=== PATIENT | male | born 1940 | race Caucasian/White ===

== ENCOUNTER 2023-02-21 15:11 | Emergency (ER) | payer OTHER, MEDICARE, SELFPAY ==
--- NOTE | ~2023-02-21 | XR_ITS ---
EXAMINATION: XR CHEST CLINICAL INFORMATION: Food stuck in her throat COMPARISON: None available. TECHNIQUE: 2 views of the chest were obtained. FINDINGS: No significant abnormality is noted involving the heart, lungs, mediastinum, bony thorax or soft tissues. XR/XR chest 2V IMPRESSION: Unremarkable chest examination
--- NOTE | 2023-02-21 15:15 | ECG_ITS ---
Test Reason : CHEST PAIN Blood Pressure : / mmHG Vent. Rate : 064 BPM Atrial Rate : 064 BPM P-R Int : 242 ms QRS Dur : 096 ms QT Int : 392 ms P-R-T Axes : 020 -14 007 degrees QTc Int : 404 ms Sinus rhythm with 1st degree A-V block Otherwise normal ECG No previous ECGs available Referred By: Luly Ervin Electronically Signed By:BRIDGET INGRAM
--- NOTE | 2023-02-21 15:35 | ED_ITS ---
HPI - General Adult General Chief complaint: Chest Pain Stated complaint: coughing,chest tightness Time Seen by Provider: 02/21/23 20:45 Source: patient Limitations: no limitations History of Present Illness HPI narrative: 82 years old history of hypertension, hyperlipidemia, hiatal hernia, presents to the emergency room for vomiting , chest pain and epigastric pain after he reports that the piece of meat got stuck in his esophagus. Patient reports that for approximately an hour after the episode he was unable to swallow liquids or solid. He reports that he vomited a few times and that after he vomited he started having abdominal pain that is since then resolved. Pain was not exertional, not worsened by respiration. Patient reports that while he was waiting to be assessed pain and all symptoms have completely resolved and he has been able to tolerate liquids. Related Data Allergies Allergy/AdvReac Type Severity Reaction Status Date / Time No Known Allergies Allergy Verified 02/21/23 20:18 Review of Systems Review of Systems: Yes all other systems are reviewed and are negative Physical Exam ED Vital Signs: Vital Signs - 24 hr 02/21/23 15:36 02/21/23 20:45 02/21/23 21:02 Temperature 96.8 F 97.7 F Pulse Rate 60 60 Respiratory Rate 16 19 Blood Pressure 140/68 H 142/64 H Pulse Oximetry 100 98 Oxygen Delivery Method Room Air Room Air BMI result Body Mass Index 22.8 General: Alert, Not in Distress Skin: No rash, warm HEENT: Atraumatic, No Exudate or Pharyngeal Erythema Resp: Normal Breath sounds bilaterally Cardio: Regular rate and Rhythm, Normal S1, S2 ABD: Abd soft, non tender, no guarding or rebound. Normal Bowel sounds. : No cva tenderness Neuro: Alert, oriented x4, PERRL Strenght 5/5 on all extremities Sensation is preserved in both lower and upper extremities Index to nose: normal Cranial Nerves II-XII grossly intact No dysarthria, or aphasia No neglet. Visual reeves are normal bilaterally Psych: Cooperative, NO SI Course Course Course Narrative: RME:?82 yo male here w/ chest discomfort after choking while eating a quesadilla 1 hour ago. Was able to vomiting the food up however is now having substurnal chest discomfort. he is unsure if this is from him retching to bring the food up. equal breath sounds bilaterally. .controlling secretions. speaking in complete sentences. not hypoxic plan for ekg, chest xr Full HPI, ROS and PE to be performed by the primary ED provider. Medical Decision Making Medical Decision Making [facility] Narrative: 82 years old presenting to the emergency room for an episode consistent with food impaction, symptoms of resolved and patient has been able to tolerate p.o.. EKG and chest x-ray that I personally reviewed showed sinus rhythm with first- degree AV block while chest x-ray was unremarkable. At this time I think that food impaction is the most likely cause of patient's symptoms have very low suspicion for ACS with an EKG that does not show any signs of ischemia. Other possible differential diagnosis include GERD, gastritis however the complete resolution of the symptoms of the patient vomited mixed meeting that those are less likely. At this time patient has remained in the emergency room for almost 6 hours, he had resolution of his symptoms, chest x-ray and EKG were unremarkable and I do not think he requires further lab work. Admission/Observation Consideration of admission/observation: Escalation of care including admission/observation considered Independent Historian Clinical information obtained from an independent historian. History obtained from or confirmed by: Spouse (confirmend pt hx) Discharge Plan Discharge Clinical Impression: Esophageal obstruction due to food impaction Patient Disposition: Home, Self-Care Additional Instructions: You were seen emergency room for chest pain. Your symptoms are consistent with food impaction which however have since then resolved. At this time I think he can be safely discharged home. Please follow-up within the next few days with your primary care physician. If the chest pain returns for the 2nd come back to the emergency room for further evaluation.
[2023-02-21 15:36] VITALS: BP 140/68; PULSE 60; RESP 16; TEMP 36; O2SAT 100; BMI 22.8
[2023-02-21 20:45] VITALS: PULSE 60; RESP 19; TEMP 36.5; O2SAT 98
[2023-02-21 21:02] VITALS: BP 142/64
--- OUTSIDE RECORDS SUMMARY | 2023-02-21 21:18 | XMS_ITS | Continuity of Care Document ---
Author Name Unknown Organization [facility] Address [address] [place] [address]- Care Team Providers Care Torpedo Specialist Name Role Phone Baldomero Kunz MD Primary Care Physician Encounter [facility] Date(s): 03/02/19 - 03/09/19 [facility] [address] [place] [address]- [facility] Encounter Diagnosis Acute URI(Discharge Diagnosis) - 03/02/19 Attending Physician: Baldomero Kunz MD Allergies, Adverse Reactions, Alerts Substance Reaction Severity Status NKA Active Immunizations Given and Recorded Vaccine Date Status Refusal Reason influenza virus vaccine, inactivated 10/22/18 Uriel rded influenza virus vaccine, inactivated 1 11/08/17 Gi david influenza virus vaccine, inactivated 2 11/23/16 Gi david influenza virus vaccine, inactivated 3 11/20/15 Gi david influenza virus vaccine, inactivated 4 12/11/14 Gi david influenza virus vaccine, inactivated 5 11/14/13 Gi david influenza virus vaccine, inactivated 6 11/30/11 Gi david influenza virus vaccine, inactivated 11/19/10 Give n influenza virus vaccine, inactivated 12/25/09 Give n pneumococcal 23-valent vaccine 7 11/23/16 Given pneumococcal 23-valent vaccine 8 02/10/15 Given pneumococcal 23-valent vaccine 9 02/10/15 Given pneumococcal 13-valent vaccine 10 11/20/15 Given tetanus/diphtheria/pertussis, acel(Tdap) 06/15/11 Given Influenza Virus Vaccine (oldterm) 11 11/28/07 Give n Influenza Virus Vaccine (oldterm) 12 12/08/06 Give n Influenza Virus Vaccine (oldterm) 13 12/07/05 Give n Pneumococcal Poly (PPV23) (oldterm) 12/09/03 Given tetanus-diphtheria toxoids (Td) 01/11/02 Given 1[facility] Note[facility]Admin Note: [facility] high dose given form received 3Admin Note: [facility] high dose flu shot 4Admin Note: [facility] 5Result Comment: [11/14/2013] given w/out incident 6Admin Note: vis sheet given. 7Admin Note: [facility] form received 8Result Comment: [02/10/2015] given w/out incident 9Result Comment: [02/10/2015] given w/out incident 10Admin Note: [facility] 11Admin Note: [email or web address] 12Admin Note: [employer] PATIENT MEETS [employer]ITERIA 13Admin Note: [employer] Medications atenolol 50 mg oral tablet 50 mg, 1, tablet, By Mouth, Daily, # 90 tablet, Refills 3, Tot. Refills 3, Maintenance, 03/02/19 13:21:00 EST, Route to Pharmacy Electronically, [facility], 172, cm, 03/02/19 13:11:00 EST, Height Start Date: 03/02/19 Stop Date: 02/25/20 Status: Ordered lisinopril 2.5 mg oral tablet 2.5 mg, 1, tablet, By Mouth, Daily, # 90 tablet, Refills 3, Tot. Refills 3, Maintenance, 04/21/18 16:36:45 EDT, Route to Pharmacy Electronically, [id number], [facility] Start Date: 04/21/18 Stop Date: 04/16/19 Status: Ordered Probiotic Formula By Mouth, Daily, 0 Refills, Maintenance, 03/02/19 13:21:00 EST Start Date: 03/02/19 Status: Ordered simvastatin 20 mg oral tablet 20 mg, 1, tablet, By Mouth, Every other day, # 45 tablet, Refills 3, Tot. Refills 3, Maintenance, 04/21/18 16:37:00 EDT, Route to Pharmacy Electronically, [id number], [facility] Start Date: 04/21/18 Stop Date: 04/16/19 Status: Ordered Vitamin D Capsule By Mouth, Maintenance, 10/23/09 14:11:54 Start Date: 10/23/09 Status: Ordered Problem List Condition Effective Dates Status Health Status Inform ant Anxiety disorder(Confirmed) Active Bacterial overgrowth syndrome(Confirmed) Active Basal cell carcinoma of skin(Confirmed) 09/2001 Active Colonic adenoma(Confirmed) 2003 Active DDD (degenerative disc disea se), lumbar L5-S1(Confirmed) 02/20/09 Active Diverticulosis(Confirmed) 04/2006 Active Erectile dysfunction(Confirmed) Active FH: colon cancer (sister)(Confirmed) Active Family history of CLL (chron ic lymphoid leukemia) brother(Confirmed) Active Family history: Hypertension (parents)(Confirmed) Active FH: Diabetes mellitus (dad)(Confirmed) Active GERD (gastroesophageal reflu x disease)(Confirmed) Active Gastroparesis(Confirmed) Active Hepatic cirrhosis(Confirmed) Active Hypercholesterolemia(Confirmed) Active Hypertension(Confirmed) Active Internal hemorrhoids(Confirmed) 04/2006 Active Right kidney stone(Confirmed) 1 06/19/15 Active Repair of inguinal hernia, left(Confirmed) 01/06/[address] Diagnosis Diagnosis Type Effective Dates Health Status Clini ana Service Informant Acute URI Discharge Diagnosis 03/02/19 Vital Signs Most recent to oldest [Reference Range]: 1 2 Height 172 cm (03/02/19 1:23 PM) 172 cm (03/02/19 1:11 PM) Weight 76.4 kg (03/02/19 1:11 PM) Oxygen Saturation [94-100 %] 98 % (03/02/19 1:11 PM) Pulse Rate [55-90 bpm] 53 bpm *L* (03/02/19 1:11 PM) Body Mass Index [18.5-24.99] 25.82 *H* (03/02/19 1:11 PM) Blood Pressure [90-138/55-84 mm Hg] 136/ 68mm Hg (03/02/19 1:23 PM) 132/66mm Hg (03/02/19 1:11 PM) Mode of Delivery (Oxygen) Room air (03/02/19 1:11 PM) Blood pressure sites Arm, left (03/02/19 1:11 PM) Weight Obtained Via Standing scale (03/02/19 1:11 PM) Social History Social History Type Response Smoking Status Never (less than 100 in lifetime) entered on: 03/02/19 Sex
--- OUTSIDE RECORDS SUMMARY | 2023-02-21 21:18 | XMS_ITS | Continuity of Care Document ---
Author Name Unknown Organization [facility] Address [address] [place] [address]- Care Team Providers Care K9 Handler Name Role Phone Baldomero Kunz MD Primary Care Physician Encounter [facility] Date(s): 03/09/21 - 03/16/21 [facility] [address] [place], [place] [address] Encounter Diagnosis Nonhealing nonsurgical wound(Discharge Diagnosis) - 03/09/21 Attending Physician: Baldomero Kunz MD Allergies, Adverse Reactions, Alerts No Known Allergies Immunizations Given and Recorded Vaccine Date Status Refusal Reason tetanus/diphtheria/pertussis, acel(Tdap) 1 03/09/21 Given tetanus/diphtheria/pertussis, acel(Tdap) 06/15/11 Given SARS-CoV-2 (COVID-19) mRNA BNT-162b2 vac 12/01/20 Recorded SARS-CoV-2 (COVID-19) mRNA BNT-162b2 vac 04/28/20 Recorded SARS-CoV-2 (COVID-19) mRNA BNT-162b2 vac 04/08/20 Recorded influenza virus vaccine, inactivated 11/18/20 Uriel rded influenza virus vaccine, inactivated 2 10/08/19 Re corded influenza virus vaccine, inactivated 10/22/18 Uriel rded influenza virus vaccine, inactivated 3 11/08/17 Gi david influenza virus vaccine, inactivated 4 11/23/16 Gi david influenza virus vaccine, inactivated 5 11/20/15 Gi david influenza virus vaccine, inactivated 6 12/11/14 Gi david influenza virus vaccine, inactivated 7 11/14/13 Gi david influenza virus vaccine, inactivated 8 11/30/11 Gi david influenza virus vaccine, inactivated 11/19/10 Give n influenza virus vaccine, inactivated 12/25/09 Give n zoster vaccine, inactivated 06/20/18 Recorded zoster vaccine, inactivated 03/28/18 Recorded pneumococcal 23-valent vaccine 9 11/23/16 Given pneumococcal 23-valent vaccine 10 02/10/15 Given pneumococcal 23-valent vaccine 11 02/10/15 Given pneumococcal 13-valent vaccine 12 11/20/15 Given Influenza Virus Vaccine (oldterm) 13 11/28/07 Give n Influenza Virus Vaccine (oldterm) 14 12/08/06 Give n Influenza Virus Vaccine (oldterm) 15 12/07/05 Give n Pneumococcal Poly (PPV23) (oldterm) 12/09/03 Given tetanus-diphtheria toxoids (Td) 01/11/02 Given 1Result Comment: [id number] given w/out incident 2Result Comment: [facility] 3Admin Note: [facility] 4Admin Note: [facility] high dose given form received 5Admin Note: [facility] high dose flu shot 6Admin Note: [facility] 7Result Comment: [11/14/2013] given w/out incident 8Admin Note: vis sheet given. 9Admin Note: [facility] form received 10Result Comment: [02/10/2015] given w/out incident 11Result Comment: [02/10/2015] given w/out incident 12Admin Note: [facility] 13Admin Note: [email or web address] 14Admin Note: [employer] PATIENT MEETS CRITERIA 15Admin Note: [employer] Medications atenolol 50 mg oral tablet 50 mg, 1, tablet, By Mouth, Daily, for 90 days, # 90 tablet, Refills 3, Tot. Refills 3, Physician Stop 03/04/22 13:58:00 EST, 03/09/21 13:58:00 EST, Route to Pharmacy Electronically, [facility], 172, cm, 03/09/21 13:48:00 EST, Height Start Date: 03/09/21 Stop Date: 03/04/22 Status: Ordered lisinopril 2.5 mg oral tablet 2.5 mg, 1, tablet, By Mouth, Daily, for 90 days, # 90 tablet, Refills 3, Tot. Refills 3, Physician Stop 03/04/22 13:58:00 EST, 03/09/21 13:58:00 EST, Route to Pharmacy Electronically, [facility], 172, cm, 03/09/21 13:48:00 EST, Height Start Date: 03/09/21 Stop Date: 03/04/22 Status: Ordered Probiotic Formula By Mouth, Daily, 0 Refills, Maintenance, 03/02/19 13:21:00 EST Start Date: 03/02/19 Status: Ordered simvastatin 20 mg oral tablet See Instructions, TAKE ONE TABLET BY MOUTH EVERY OTHER DAY, # 45 tablet, Refills 3, Tot. Refills 3,03/09/21 13:58:00 EST, Instructions Replace Required Details, Route to Pharmacy Electronically, [facility], 172, cm, 03/09/21 13:48:00 EST... Start Date: 03/09/21 Status: Ordered Vitamin D Capsule By Mouth, [...] Diagnosis Diagnosis Type Effective Dates Health Status Clinical Service Informant Nonhealing nonsurgical wound Discharge Diagnosis 03/09/21 Vital Signs Most recent to oldest [Reference Range]: 1 Height 172 cm (03/09/21 1:48 PM) Weight 75.9 kg (03/09/21 1:48 PM) Oxygen Saturation [94-100 %] 98 % (03/09/21 1:48 PM) Pulse Rate [55-90 bpm] 61 bpm (03/09/21 1:48 PM) Body Mass Index [18.5-24.99] 25.66 *H* (03/09/21 1:48 PM) Blood Pressure [90-138/55-84 mm Hg] 138/ 78mm Hg (03/09/21 1:48 PM) Temperature [96.8-100.4 DegF] 98.2 DegF (03/09/21 1:48 PM) Mode of Delivery (Oxygen) Room air (03/09/21 1:48 PM) Blood pressure sites Arm, left (03/09/21 1:48 PM) Temperature Route Temporal (03/09/21 1:48 PM) Social History Social History Type Response Smoking Status Never (less than 100 in lifetime) entered on: 03/02/19 Sex
--- OUTSIDE RECORDS SUMMARY | 2023-02-21 21:18 | XMS_ITS | Continuity of Care Document ---
Author Name Unknown Organization [facility] Address [address] [place] [address]- Care Team Providers Care Retail Reset Merchandiser Name Role Phone Baldomero Kunz MD Primary Care Physician Encounter [facility] Date(s): 03/07/20 - 04/06/20 [facility] [address] [place], [place] [address] Allergies, Adverse Reactions, Alerts Substance Reaction Severity Status NKA Active Immunizations Given and Recorded Vaccine Date Status Refusal Reason influenza virus vaccine, inactivated 1 10/08/19 Re corded influenza virus vaccine, inactivated 10/22/18 Uriel rded influenza virus vaccine, inactivated 2 11/08/17 Gi david influenza virus vaccine, inactivated 3 11/23/16 Gi david influenza virus vaccine, inactivated 4 11/20/15 Gi david influenza virus vaccine, inactivated 5 12/11/14 Gi david influenza virus vaccine, inactivated 6 11/14/13 Gi david influenza virus vaccine, inactivated 7 11/30/11 Gi david influenza virus vaccine, inactivated 11/19/10 Give n influenza virus vaccine, inactivated 12/25/09 Give n pneumococcal 23-valent vaccine 8 11/23/16 Given pneumococcal 23-valent vaccine 9 02/10/15 Given pneumococcal 23-valent vaccine 10 02/10/15 Given pneumococcal 13-valent vaccine 11 11/20/15 Given tetanus/diphtheria/pertussis, acel(Tdap) 06/15/11 Given Influenza Virus Vaccine (oldterm) 12 11/28/07 Give n Influenza Virus Vaccine (oldterm) 13 12/08/06 Give n Influenza Virus Vaccine (oldterm) 14 12/07/05 Give n Pneumococcal Poly (PPV23) (oldterm) 12/09/03 Given tetanus-diphtheria toxoids (Td) 12/5/02 Given 1Result Comment: [facility] 2Admin Note: [facility] 3Admin Note: [facility] high dose given form received 4Admin Note: [facility] high dose flu shot 5Admin Note: [facility] 6Result Comment: [11/14/2013] given w/out incident 7Admin Note: vis sheet given. 8Admin Note: [facility] form received 9Result Comment: [02/10/2015] given w/out incident 10Result Comment: [02/10/2015] given w/out incident 11Admin Note: [facility] 12Admin Note: [email or web address] 13Admin Note: [employer] PATIENT MEETS CRITERIA 14Admin Note: [employer] Medications atenolol 50 mg oral tablet 50 mg, 1, tablet, By Mouth, Daily, # 90 tablet, Refills 3, Tot. Refills 3, Maintenance, 03/06/20 9:01:00 EST, Route to Pharmacy Electronically, [facility], 172, cm, 03/02/19 13:23:00EST, Height Start Date: 03/06/20 Stop Date: 03/01/21 Status: Ordered lisinopril 2.5 mg oral tablet 2.5 mg, 1, tablet, By Mouth, Daily, # 90 tablet, Refills 1, Tot. Refills 1, Maintenance, 10/23/19 11:18:00 EDT, Route to Pharmacy Electronically, [facility], 172, cm, 03/02/19 13:23:00 EST, Height Start Date: 10/23/19 Stop Date: 04/20/20 Status: Ordered Probiotic Formula By Mouth, Daily, 0 Refills, Maintenance, 03/02/19 13:21:00 EST Start Date: 03/02/19 Status: Ordered simvastatin 20 mg oral tablet 20 mg, 1, tablet, By Mouth, Every other day, # 45 tablet, Refills 1, Tot. Refills 1, Maintenance, 10/23/19 11:18:00 EDT, Route to Pharmacy Electronically, [facility], 172, cm, 03/02/19 13:23:00 EST, Height Start Date: 10/23/19 Stop Date: 3/14/21 Status: Ordered Vitamin D Capsule By Mouth, [...] inguinal hernia, left(Confirmed) 01/06/[address] Social History Social History Type Response Smoking Status Never (less than 100 in lifetime) entered on: 03/02/19 Sex
--- OUTSIDE RECORDS SUMMARY | 2023-02-21 21:18 | XMS_ITS | Continuity of Care Document ---
Author Name Unknown Organization [facility] Address [address] [place] [address]- Care Team Providers Care Manager Pricing Name Role Phone Baldomero Kunz MD Primary Care Physician Encounter [facility] Date(s): 03/06/20 - 04/05/20 [facility] [address] [place], [place] [address] Attending Physician: Vishal Mcclendon Admitting Physician: AdmVishal pearson Referring Physician: AdmtrVishal Allergies, Adverse Reactions, Alerts Substance Reaction Severity [...] tetanus-diphtheria toxoids (Td) 01/11/02 Given 1Result Comment: [facility] 12Admin Note: [email or web address] 13Admin Note: [employer] PATIENT MEETS CRITERIA 14Admin Note: [employer] Medications atenolol 50 mg oral tablet 50 mg, 1, tablet, By Mouth, Daily, # 90 tablet, Refills 3, Tot. Refills 3, Maintenance, 03/06/20 9:01:00 EST, Route to Pharmacy Electronically, [facility], 172, cm, 03/02/19 13:23:00EST, Height Start Date: 03/06/20 Stop Date: 03/01/21 Status: Ordered lisinopril 2.5 mg oral tablet 2.5 mg, 1, tablet, By Mouth, Daily, # 90 tablet, Refills 1, Tot. Refills 1, Maintenance, 10/23/19 11:18:00 EDT, Route to Pharmacy Electronically, [facility], 172, cm, 03/02/19 13:23:00 EST, Height Start Date: 10/23/19 Stop Date: 04/20/20 Status: Ordered Probiotic Formula By Mouth, Daily, 0 Refills, Maintenance, 03/02/19 13:21:00 EST Start Date: 03/02/19 Status: Ordered simvastatin 20 mg oral tablet 20 mg, 1, tablet, By Mouth, Every other day, # 45 tablet, Refills 1, Tot. Refills 1, Maintenance, 10/23/19 11:18:00 EDT, Route to Pharmacy Electronically, [facility], 172, cm, 03/02/19 13:23:00 EST, Height Start Date: 10/23/19 Stop Date: 04/20/20 Status: Ordered Vitamin D Capsule By Mouth, [...]
--- OUTSIDE RECORDS SUMMARY | 2023-02-21 21:18 | XMS_ITS | Continuity of Care Document ---
Author Name Unknown Organization [facility] Address [address] [place] [address]- Care Team Providers Care Medical Planner Name Role Phone Baldomero Kunz MD Primary Care Physician Encounter [facility] Date(s): 03/06/20 - 03/13/20 [facility] [address] [place], [place] [address] Attending Physician: Baldomero Kunz MD Allergies, Adverse [...] [facility] shop 12Admin Note: [email or web address] 13Admin Note: [employer] PATIENT MEETS CRITERIA 14Admin Note: [employer] Medications atenolol 50 mg oral tablet 50 mg, 1, tablet, By Mouth, Daily, # 90 tablet, Refills 3, Tot. Refills 3, Maintenance, 03/06/20 9:01:00 EST, Route to Pharmacy Electronically, [facility], 172, cm, 03/02/19 13:23:00EST, Height Start Date: 03/06/20 Stop Date: 03/01/21 Status: Ordered lisinopril 2.5 mg oral tablet 2.5 mg, 1, tablet, By Mouth, Daily, # 90 tablet, Refills 1, Tot. Refills 1, Maintenance, 10/23/19 11:18:00 EDT, Route to Pharmacy Electronically, [facility], 172, cm, 03/02/19 13:23:00 EST, Height Start Date: 10/23/19 Stop Date: 04/20/20 Status: Ordered Probiotic Formula By Mouth, Daily, 0 Refills, Maintenance, 03/02/19 13:21:00 EST Start Date: 03/02/19 Status: Ordered simvastatin 20 mg oral tablet 20 mg, 1, tablet, By Mouth, Every other day, # 45 tablet, Refills 1, Tot. Refills 1, Maintenance, 10/23/19 11:18:00 EDT, Route to Pharmacy Electronically, [facility], 172, cm, 03/02/19 13:23:00 EST, [...]
--- OUTSIDE RECORDS SUMMARY | 2023-02-21 21:18 | XMS_ITS | Continuity of Care Document ---
Author Name Unknown Organization [facility] [place] [place] [facility] Address [address] [place] [address]- Care Team Providers Care Weigher Operator Name Role Phone Ze DIEZ, Baldomero Primary Care Physician [facility] 04/[facility]/22 - 05/01/[address] [facility] [place] [place] [facility] [address] [place], [place] [address] Allergies, Adverse Reactions, Alerts No Known Allergies Immunizations Given and Recorded Vaccine Date Status Refusal Reason [id number] 12y+ bivalent booster vax 11/11/21 Recorded influenza virus vaccine, inactivated 10/08/21 Uriel rded influenza virus vaccine, inactivated 11/18/20 Uriel rded influenza virus vaccine, inactivated 1 10/08/19 Re [...] influenza virus vaccine, inactivated 12/25/09 Give n SARS-CoV-2 mRNA (omyanhu-mrsk-vkxrp) vax 06/02/21 Recorded tetanus/diphtheria/pertussis, acel(Tdap) 8 03/09/21 Given tetanus/diphtheria/pertussis, acel(Tdap) 06/15/11 Given SARS-CoV-2 (COVID-19) mRNA BNT-162b2 vac 12/01/20 Recorded SARS-CoV-2 (COVID-19) mRNA BNT-162b2 vac 04/28/20 Recorded SARS-CoV-2 (COVID-19) mRNA BNT-162b2 vac 04/08/20 Recorded zoster vaccine, inactivated 06/20/18 Recorded zoster vaccine, [...] w/out incident 7Admin Note: vis sheet given. 8Result Comment: [id number] given w/out incident 9Admin Note: done @ [facility] form received 10Result Comment: [02/10/2015] given w/out incident 11Result Comment: [02/10/2015] given w/out incident 12Admin Note: done @ [facility] 13Admin Note: sanofi 14Admin Note: [employer] PATIENT MEETS CRITERIA 15Admin Note: SANOFI PA[employer]UR Medications atenolol 50 mg oral tablet 50 mg, 1, tablet, By Mouth, Daily, for 90 days, # 90 tablet, Refills 3, Tot. Refills 3, Physician Stop 03/05/23 9:25:00 EST, 03/10/22 9:25:00 EST, Route to Pharmacy Electronically, [facility], [facility], cm, 03/10/22 8:55:00 EST, Height Start Date: 03/10/22 Stop Date: 03/05/23 Status: Ordered lisinopril 2.5 mg oral tablet 2.5 mg, 1, tablet, By Mouth, Daily, for 90 days, # 90 tablet, Refills 3, Tot. Refills 3, Physician Stop 03/05/23 9:25:00 EST, 03/10/22 9:25:00 EST, Route to Pharmacy Electronically, [facility], 172, cm, 03/10/22 8:55:00 EST, Height Start Date: 03/10/22 Stop Date: 03/05/23 Status: Ordered Probiotic Formula By Mouth, Daily, 0 Refills, Maintenance, 03/02/19 13:21:00 EST Start Date: 03/02/19 Status: Ordered simvastatin 20 mg oral tablet See Instructions, TAKE ONE TABLET BY MOUTH EVERY OTHER DAY, # 45 tablet, Refills 3, Tot. Refills 3,Maintenance, 03/10/22 9:23:00 EST, Instructions Replace Required Details, Route to Pharmacy Electronically, [facility], 172, cm, 03/10/22... Start Date: 03/10/22 Status: Ordered Vitamin D Capsule By Mouth, Maintenance, 10/23/09 14:11:54 Start Date: 10/23/09 Status: Ordered Problem List Condition Confirmation Course Effective Dates Status Health Status Informant Anxiety disorder Confirmed Active Bacterial overgrowth syndrome Confirmed Active Basal cell carcinoma of skin Confirmed 09/2001 Active Colonic adenoma Confirmed 2003 Active DDD (degenerative disc disease), lumbar L5-S1 Confirmed 02/20/09 Active Diverticulosis Confirmed 04/2006 Active Erectile dysfunction Confirmed Active FH: colon cancer (sister) Confirmed Active Family history of CLL (chronic lymphoid leukemia) brother Confirmed Active Family history: Hypertension (parents) Confirmed Active FH: Diabetes mellitus (dad) Confirmed Active GERD (gastroesophageal reflux disease) Confirmed Active Gastroparesis Confirmed Active Hepatic cirrhosis Confirmed Active Hypercholesterolemia Confirmed Active Hypertension Confirmed Active Internal hemorrhoids Confirmed 04/2006 Active Right kidney stone 1 Confirmed 06/19/15 Active Repair of inguinal hernia, left Confirmed 01/06/[address] Social History Social History Type Response Smoking Status Never (less than 100 in lifetime) entered on: 03/02/19 Sex Patient Care team information Care Team Personnel Name: Baldomero Kunz MD Position: S Primary Care Physician Member Role: PCP Address: Address: [address] [place] [address] Adult [place] [address]- Care Team Related Persons Name: CARLY FLORESA Address: [address] [place] [address]
--- OUTSIDE RECORDS SUMMARY | 2023-02-21 21:18 | XMS_ITS | Continuity of Care Document ---
Author Name Unknown Organization [facility] Address [address] [place] [address]- Care Team Providers Care Document Examiner Name Role Phone Ze DIEZ, Baldomero Primary Care Physician [facility]): 03/18/22 - 04/17/22 [facility] [address] [place], [place] [address] Allergies, Adverse Reactions, Alerts No Known Allergies Immunizations Given and Recorded Vaccine Date Status Refusal Reason [id number] 12y+ bivalent booster vax 11/11/21 Recorded influenza [...] vaccine, inactivated 12/25/09 Give n SARS-CoV-2 mRNA (vsdxuyj-wqho-yqacf) vax 06/02/21 Recorded tetanus/diphtheria/pertussis, acel(Tdap) 8 03/09/21 [...] 7Admin Note: vis sheet given. 8Result Comment: [id number] given w/out incident 9Admin Note: done @ [facility] form received 10Result Comment: [02/10/2015] given w/out incident 11Result Comment: [02/10/2015] given w/out incident 12Admin Note: done @ [facility] 13Admin Note: sanofi 14Admin Note: [employer] PATIENT MEETS CRITERIA 15Admin Note: SANOFI PASTEUR Medications atenolol 50 mg oral tablet 50 mg, 1, tablet, By Mouth, Daily, for 90 days, # 90 tablet, Refills 3, Tot. Refills 3, Physician Stop 03/05/23 9:25:00 EST, 03/10/22 9:25:00 EST, Route to Pharmacy Electronically, [facility], 172, cm, 03/10/22 8:55:00 EST, Height Start Date: 03/10/22 Stop Date: 03/05/23 Status: Ordered lisinopril 2.5 mg oral tablet 2.5 mg, 1, tablet, By Mouth, Daily, for 90 days, # 90 tablet, Refills 3, Tot. Refills 3, Physician Stop 03/05/23 9:25:00 EST, 03/10/22 9:25:00 EST, Route to Pharmacy Electronically, [facility], 172, cm, 03/10/22 8:55:00 EST, [...] Details, Route to Pharmacy Electronically, [facility], 172, cm, 03/10/22... Start Date: [...] Team Personnel Name: Baldomero Kunz MD Position: [facility] Primary Care Physician Member Role: PCP Address: Address: [address] [place] [address] Adult [place] [address]- Care Team Related Persons Name: LISA FLORES Address: [address] [place] [address]
--- OUTSIDE RECORDS SUMMARY | 2023-02-21 21:18 | XMS_ITS | Continuity of Care Document ---
Author Name Unknown Organization [facility] Address [address] [place] [address]- Care Team Providers Care Data Management Analyst Name Role Phone Ze DIEZ, Baldomero Primary Care Physician [facility]): 12/28/22 - 01/27/23 [facility] [address] [place], [place] [address] Allergies, Adverse Reactions, Alerts No Known Allergies Immunizations Given and Recorded Vaccine Date Status Refusal Reason SARS-CoV-2(COVID-19)mRNA-LNP vac([id number]) 11/01/22 Recorded influenza virus vaccine, inactivated 10/27/22 Uriel rded influenza virus vaccine, inactivated 10/08/21 Uriel rded [...] influenza virus vaccine, inactivated 12/25/09 Give n [id number]-4wWFA 12y+ bivalent booster vax 06/23/22 Recorded [id number]-[id number]-9mCXN 12y+ bivalent booster vax 11/11/21 Recorded SARS-CoV-2 mRNA (vusdqlm-qkyl-zllbc) vax 06/02/21 Recorded tetanus/diphtheria/pertussis, acel(Tdap) 8 03/09/21 [...] 7Admin Note: vis sheet given. 8Result Comment: [id number] given w/out incident 9Admin Note: done @ [...] EST, Route to Pharmacy Electronically, [facility], 172, cm, 03/10/22 8:55:00 EST, Height Start Date: 03/10/22 Stop Date: 03/05/23 Status: Ordered multi vitamin multi vitamin, Refills 0, Maintenance, 01/04/23 11:04:00 EST, Supply Start Date: 01/04/23 Status: Ordered Probiotic Formula By Mouth, Daily, 0 Refills, Maintenance, 03/02/19 13:21:00 EST Start Date: 03/02/19 Status: Ordered simvastatin 20 mg oral tablet See Instructions, TAKE ONE TABLET BY MOUTH EVERY OTHER DAY, # 45 tablet, Refills 3, Tot. Refills 3,Maintenance, 03/10/22 9:23:00 EST, Instructions Replace Required Details, Route to Pharmacy Electronically, [facility], 172, cm, 03/10/22... Start Date: [...] Team Personnel Name: Baldomero Kunz MD Position: [facility] Physician - Primary Care Member Role: PCP Address: Address: [address] [place] [address] Adult & [place] [address]- Care Team Related Persons Name: LISA FLORES Address: [address] [address]
--- OUTSIDE RECORDS SUMMARY | 2023-02-21 21:18 | XMS_ITS | Continuity of Care Document ---
Author Name Unknown Organization [facility] Address [address] [place] [address]- Care Team Providers Care Wound Care Rn Name Role Phone Ze DIEZ, Baldomero Primary Care Physician [facility]): 12/31/22 - 01/07/23 [facility] [address] [place], [place] [address] Attending Physician: Rupesh Hampton MD Allergies, Adverse Reactions, Alerts No Known Allergies Immunizations Given and Recorded Vaccine Date Status Refusal Reason SARS-CoV-2(COVID-19)mRNA-LNP vac([id number]) 11/01/22 Recorded influenza virus vaccine, inactivated 10/27/22 [...] influenza virus vaccine, inactivated 12/25/09 Give n [id number] 12y+ bivalent booster vax 06/23/22 Recorded [id number]-LeC-8jOCH 12y+ bivalent booster vax 11/11/21 Recorded SARS-CoV-2 mRNA (vhwvyof-luji-julgd) vax 06/02/21 Recorded tetanus/diphtheria/pertussis, acel(Tdap) 8 03/09/21 [...] 7Admin Note: vis sheet given. 8Result Comment: [id number] given w/out incident 9Admin Note: done @ [...] 03/10/22 9:25:00 EST, Route to Pharmacy Electronically, [facility], 172, cm, 03/10/22 8:55:00 EST, [...] Replace Required Details, Route to Pharmacy Electronically, [facility], 172, cm, 03/10/22... Start Date: [...] hernia, left Confirmed 01/06/[address] Vital Signs Most recent to oldest [Reference Range]: 1 Height 172 cm (12/31/22 10:26 AM) Weight 70.4 kg (12/31/22 10:26 AM) Oxygen Saturation [94-100 %] 97 % (12/31/22 10:26 AM) Pulse Rate [55-90 bpm] 64 bpm (12/31/22 10:26 AM) Body Mass Index [18.5-24.99 kg/m2] 23.8 kg/m2 (12/31/22 10:26 AM) Blood Pressure [90-138/55-84 mm Hg] 138/ 78mm Hg (12/31/22 10:26 AM) Mode of Delivery (Oxygen) Room air (12/31/22 10:26 AM) Blood pressure sites Arm, left (12/31/22 10:26 AM) Social History Social History Type Response Smoking Status Never (less than 100 in lifetime) entered on: 03/02/19 Sex Note * Keri Morgan: PERFORM, SIGN, VERIFY Event Display: Patient Education/Instruction Authored Date: [id number] [facility] *No [facility] Clinical Summary Name ANGIE FLORES Age 82 Years 1940 PCP Baldomero Kunz MD PCP Visit Date 12/31/2022 10:08:00 Additional Instructions: Scheduled Appointments?? Future Appointments ?*No??[facility] ?[address]??[place],??[place],??[address] ?Phone:??--?Fax:??-- ?Appt. Date:??03/15/2023?9:00 AM ?Scheduled Provider:??Baldomero Kunz MD Follow-Up Instructions ?? Diagnosis Sciatica, unspecified side Medications: Please continue your medications until treatment is completed or stopped by your provider. Discuss any questions related to medications with your provider. Medications to Continue with No Changes These medications were not printed or sent to your pharmacy Atenolol (atenolol 50 mg oral tablet) 1 tab(s) Oral Daily for 90 Days. Refills: 3. Next Dose: bifidobacterium-lactobacillus (Probiotic Formula) Oral Daily. Next Dose: Ergocalciferol (Vitamin D Capsule) Oral. Next Dose: Lisinopril (lisinopril 2.5 mg oral tablet) 1 tab(s) Oral Daily for 90 Days. Refills: 3. Next Dose: Simvastatin (simvastatin 20 mg oral tablet) TAKE ONE TABLET BY MOUTH EVERY OTHER DAY. Refills: 3. Next Dose: Allergy Info:?? NKA Medications Given This Visit Future Orders ?No future orders Vital Signs Height 172 cm Weight 70.4 kg BMI 23.8 kg/m2 Blood Pressure 138 mm Hg/78 mm Hg Temperature Pulse Rate 64 bpm Respiratory Rate 02 Sat Mode of Delivery 97 %/Room air You can now view a summary of your hospital visit from the comfort of your home through a free online portal called Squ[employer]bler. Squabbler is a website that allows you to securely view your medical information including discharge summary, medications and follow-up visits. ??You can alsosend a secure electronic message to your doctor???s office to request appointments, renew medications or just ask a question. You can enroll at [email or web address] or register during your next office visit. Disclaimer:?? The information provided is of a general nature and is intended to be used in conjunction with the recommendations and advice of your health care practitioner. ??Every effort has been made to ensure that the information provided is accurate and complete at the time it is provided to you however, as your needs change, or, as new ??information becomes available, different or additional instructions may be required. If you have questions, please consult with your primary care provider or pharmacist, as appropriate. ??This information is not intended to serve as substitution for assessment and evaluation by a qualified health care provider. If you do not have a primary care provider, you may find a [facility] provider by calling [facility] at [phone]. [facility], in keeping with [facility] guidance, no longer requires face masks for staff, patientsor visitors in most situations. Similar to time spent indoors at other locations, there is the chance that you were exposed to respiratory viruses during your time with us (such as flu or COVID-19).? If you develop symptoms concerning for a viral respiratory infection, please seek testing (and treatment if indicated) from your medical provider or home test kit. For information about the plan of care including goals and instructions for your diagnosis, please see the patient education orders section of this document. Patient Education Materials?? The content of this educational material or handout may have been modified, supplemented, or adapted from its original content and format to support your individualized medical care. Additional Provider Instructions: Arthritis Acetaminophen / tylenol / Tylenol 8 2 every 8 hours x 2 days and then 1 every 8 hours forabout a week or so Patient Care team information Care Team Personnel Name: Baldomero Kunz MD Position: [facility] Physician - Primary Care Member Role: PCP Address: Address: [address] [place] [address] Adult [place] [address]- Care Team Related Persons Name: LISA FLORES Address: [place] [address] [place] [address]
--- OUTSIDE RECORDS SUMMARY | 2023-02-21 21:18 | XMS_ITS | Continuity of Care Document ---
Author Name Unknown Organization [facility] Address [address] [place] [address]- Care Team Providers Care Side Hemmer Name Role Phone Baldomero Kunz MD Primary Care Physician [facility]): 12[facility]31/22 - 01/30/23 [facility] [address] [place], [place] [address] Attending Physician: Vishal Mcclendon Admitting Physician: AdmtrVishal Referring Physician: Admtr ArFernanda Allergies, Adverse Reactions, Alerts No Known Allergies Immunizations Given and Recorded Vaccine Date Status Refusal Reason SARS-CoV-2(COVID-19)mRNA-LNP vac([id number]) 11/01/22 Recorded influenza virus vaccine, inactivated 10/27/22 [...] influenza virus vaccine, inactivated 12/25/09 Give n [id number]-OiL-4oZYZ 12y+ bivalent booster vax 06/23/22 Recorded ECGQ-KsM-9rHYC 12y+ bivalent booster vax 11/11/21 Recorded SARS-CoV-2 mRNA (vuwzuqh-ashz-oqout) vax 06/02/21 Recorded tetanus/diphtheria/pertussis, acel(Tdap) 8 03/09/21 [...] 7Admin Note: vis sheet given. 8Result Comment: [id number] given w/out incident 9Admin Note: done @ [...] 03/10/22 9:25:00 EST, Route to Pharmacy Electronically, [facility], 172, cm, 03/10/22 8:55:00 EST, Height Start Date: 03/10/22 Stop Date: 03/05/23 Status: Ordered lisinopril 2.5 mg oral tablet 2.5 mg, 1, tablet, By Mouth, Daily, for 90 days, # 90 tablet, Refills 3, Tot. Refills 3, Physician Stop 03/05/23 9:25:00 EST, 03/10/22 9:25:00 EST, Route to Pharmacy Electronically, [facility], 172, cm, 03/10/22 8:55:00 EST, [...] Replace Required Details, Route to Pharmacy Electronically, [facility], 172, cm, 03/10/22... Start Date: [...] 100 in lifetime) entered on: 03/02/19 Sex Cardiology * Namrata White: PERFORM Event Display: Cardiovascular Results Scanned Authored Date: [id number] * Nay Mortensen: PERFORM Event Display: Cardiovascular Results Scanned Authored Date: [id number] Laboratory * Russell Barry: PERFORM Event Display: Laboratory Results Scanned Authored Date: [id number] * Nay Funk: PERFORM Event Display: Laboratory Results Scanned Authored Date: [id number] * Namrata White: PERFORM Event Display: Laboratory Results Scanned Authored Date: [id number] Patient Care team information Care Team Personnel Name: Baldomero Kunz MD Position: S Physician - Primary Care Member Role: PCP Address: Address: [address] [place] [address] Adult [place] [address]- Care Team Related Persons Name: LISA FLORES Address: [address] [place] [address]
--- OUTSIDE RECORDS SUMMARY | 2023-02-21 21:18 | XMS_ITS | Continuity of Care Document ---
Author Name Unknown Organization [facility] Address [address] [place] [address]- Care Team Providers Care Hole Puncher Strap Name Role Phone Ze DIEZ, Baldomero Primary Care Physician [facility]): 10/14/20 - 11/13/20 [facility] [address] [place], [place] [address] Allergies, Adverse Reactions, Alerts Substance Reaction Severity [...] 03/06/20 9:01:00 EST, Route to Pharmacy Electronically, [facility], 172, cm, 03/02/19 13:23:00EST, Height Start Date: 03/06/20 Stop Date: 03/01/21 Status: Ordered lisinopril 2.5 mg oral tablet See Instructions, TAKE ONE TABLET BY MOUTH EVERY DAY, # 90 tablet, Refills 0, Instructions Replace Required Details, Route to Pharmacy Electronically, [facility], 172, cm, 03/02/19 13:23:00 EST, Height Start Date: 10/14/20 Status: Ordered Probiotic Formula By Mouth, Daily, 0 Refills, Maintenance, 03/02/19 13:21:00 EST Start Date: 03/02/19 Status: Ordered simvastatin 20 mg oral tablet See Instructions, TAKE ONE TABLET BY MOUTH EVERY OTHER DAY, # 45 tablet, Refills 1, Instructions Replace Required Details, Route to Pharmacy Electronically, [facility], 172, cm, 03/02/19 13:23:00 EST, Height Start Date: 10/17/20 Status: Ordered Vitamin D Capsule By Mouth, [...]
--- OUTSIDE RECORDS SUMMARY | 2023-02-21 21:18 | XMS_ITS | Continuity of Care Document ---
Author Name Unknown Organization [facility] Address [address] [place] [address]- Care Team Providers Care Custom Feed Mill Operator Helper Name Role Phone Baldomero Kunz MD Primary Care Physician [facility]): 07/25/20 - 08/24/20 [facility] [address] [place], [place] [address] Allergies, Adverse Reactions, Alerts Substance Reaction Severity [...] & shop 12Admin Note: sanofi 13Admin Note: [employer] PATIENT MEETS CRITERIA 14Admin Note: SANOFI PASTEUR Medications atenolol 50 mg oral tablet 50 mg, 1, tablet, By Mouth, Daily, # 90 tablet, Refills 3, Tot. Refills 3, Maintenance, 03/06/20 9:01:00 EST, Route to Pharmacy Electronically, [facility], 172, cm, 03/02/19 13:23:00EST, Height Start Date: 03/06/20 Stop Date: 03/01/21 Status: Ordered lisinopril 2.5 mg oral tablet 2.5 mg, 1, tablet, By Mouth, Daily, # 90 tablet, Refills 0, Tot. Refills 0, Maintenance, 07/19/20 11:18:00 EDT, Route to Pharmacy Electronically, [facility], 172, cm, 03/02/19 13:23:00 EST, Height Start Date: 07/19/20 Stop Date: 10/17/20 Status: Ordered Probiotic Formula By Mouth, Daily, 0 Refills, Maintenance, 03/02/19 13:21:00 EST Start Date: 03/02/19 Status: Ordered simvastatin 20 mg oral tablet 20 mg, 1, tablet, By Mouth, Every other day, # 45 tablet, Refills 1, Tot. Refills 1, Maintenance, 04/20/20 11:18:00 EDT, Route to Pharmacy Electronically, [facility], 172, cm, 03/02/19 13:23:00 EST, Height Start Date: 04/20/20 Stop Date: 10/17/20 Status: Ordered Vitamin D Capsule [...]
--- OUTSIDE RECORDS SUMMARY | 2023-02-21 21:18 | XMS_ITS | Continuity of Care Document ---
Author Name Unknown Organization [facility] Address [address] [place] [address]- Care Team Providers Care Medical Doctor Nuclear Medicine Name Role Phone Baldomero Kunz MD Primary Care Physician [facility](s): 05/20/21 - 06/19/21 [facility] [address] [place], [place] [address] Allergies, Adverse Reactions, Alerts No [...] tetanus-diphtheria toxoids (Td) 01/11/02 Given 1Result Comment: [id number] given w/out incident 2Result Comment: done @ [...] 03/09/21 13:58:00 EST, Route to Pharmacy Electronically, [facility], 172, cm, 03/09/21 13:48:00 EST, Height Start Date: 03/09/21 Stop Date: 03/04/22 Status: Ordered lisinopril 2.5 mg oral tablet 2.5 mg, 1, tablet, By Mouth, Daily, for 90 days, # 90 tablet, Refills 3, Tot. Refills 3, Physician Stop 03/04/22 13:58:00 EST, 03/09/21 13:58:00 EST, Route to Pharmacy Electronically, [facility], 172, cm, 03/09/21 13:48:00 EST, [...]
--- OUTSIDE RECORDS SUMMARY | 2023-02-21 21:19 | XMS_ITS | Continuity of Care Document ---
Author Name Unknown Organization [facility] Address [address] [place] [address]- Care Team Providers Care Package Worker Name Role Phone Baldomero Kunz MD Primary Care Physician [facility]): 03/18/21 - 04/17/21 [facility] [address] [place], [place] [address] Allergies, Adverse Reactions, Alerts No Known Allergies [...] inactivated 03/28/18 Recorded pneumococcal 23-valent vaccine 9 10/17/17 Given pneumococcal 23-valent vaccine 10 02/10/15 Given pneumococcal 23-valent vaccine 11 02/10/15 Given pneumococcal 13-valent vaccine 12 11/20/15 Given Influenza Virus Vaccine (oldterm) 13 11/28/07 Give n Influenza Virus Vaccine (oldterm) 14 12/08/06 Give n Influenza Virus Vaccine (oldterm) 15 12/07/05 Give n Pneumococcal Poly (PPV23) (oldterm) 12/09/03 Given tetanus-diphtheria toxoids (Td) 01/11/02 Given 1Result Comment: [id number] given w/out incident 2Result Comment: done @ [...] 03/09/21 13:58:00 EST, Route to Pharmacy Electronically, [facility], 172, cm, 03/09/21 13:48:00 EST, Height Start Date: 03/09/21 Stop Date: 03/04/22 Status: Ordered lisinopril 2.5 mg oral tablet 2.5 mg, 1, tablet, By Mouth, Daily, for 90 days, # 90 tablet, Refills 3, Tot. Refills 3, Physician Stop 03/04/22 13:58:00 EST, 03/09/21 13:58:00 EST, Route to Pharmacy Electronically, [facility], 172, cm, 03/09/21 13:48:00 EST, [...]
--- OUTSIDE RECORDS SUMMARY | 2023-02-21 21:19 | XMS_ITS | Continuity of Care Document ---
Author Name Unknown Organization [facility] Address [address] [place] [address]- Care Team Providers Care Retail Office Associate Name Role Phone Ze DIEZ, Baldomero Primary Care Physician [facility]): 03/10/22 - 04/09/22 [facility] [address] [place], [place] [address] Allergies, Adverse Reactions, Alerts No Known Allergies Immunizations Given and Recorded Vaccine Date Status Refusal Reason [id number] 12y+ bivalent booster vax 11/11/21 Recorded influenza [...] vaccine, inactivated 12/25/09 Give n SARS-CoV-2 mRNA ([id number]-dtkh-[id number]) vax 06/02/21 Recorded tetanus/diphtheria/pertussis, acel(Tdap) 8 03/09/21 [...] 7Admin Note: vis sheet given. 8Result Comment: [id number] given w/out incident 9Admin Note: done @ [facility] form received 10Result Comment: [02/10/2015] given w/out incident 11Result Comment: [02/10/2015] given w/out incident 12Admin Note: done @ [facility] 13Admin Note: sanofi 14Admin Note: [employer] PATIENT MEETS CRITERIA 15Admin Note: [employer]FI [employer] Medications atenolol 50 mg oral tablet 50 mg, 1, tablet, By Mouth, Daily, for 90 days, # 90 tablet, Refills 3, Tot. Refills 3, Physician Stop 03/05/23 9:25:00 EST, 03/10/22 9:25:00 EST, Route to Pharmacy Electronically, [facility], 172, cm, 03/10/22 8:55:00 EST, Height Start Date: 03/10/22 Stop Date: 03/05/23 Status: Ordered lisinopril 2.5 mg oral tablet 2.5 mg, 1, tablet, By Mouth, Daily, for 90 days, # 90 tablet, Refills 3, Tot. Refills 3, Physician Stop 03/05/23 9:25:00 EST, 03/10/22 9:25:00 EST, Route to Pharmacy Electronically, [facility], 172, cm, 03/10/22 8:55:00 EST, [...] Details, Route to Pharmacy Electronically, [facility], 172, cm, 03/10/22... Start Date: [...] Care Physician Member Role: PCP Address: Address: [address] [place] [address] Adult & [place] [address]- Care Team Related Persons Name: CARLY FLORESA Address: [address] [place] [address]
--- OUTSIDE RECORDS SUMMARY | 2023-02-21 21:19 | XMS_ITS | Continuity of Care Document ---
Author Name Unknown Organization [facility] Address [address] [place] [address]- Care Team Providers Care Dust Puller Name Role Phone Baldomero Kunz MD Primary Care Physician [facility]s): 03/24/21 - 04/23/21 [facility] [address] [place], [place] [address] Allergies, Adverse Reactions, Alerts [...] tetanus-diphtheria toxoids (Td) 01/11/02 Given 1Result Comment: [id number] given w/out incident 2Result Comment: done @ [...] 03/09/21 13:58:00 EST, Route to Pharmacy Electronically, [facility], 172, cm, 03/09/21 13:48:00 EST, Height Start Date: 03/09/21 Stop Date: 03/04/22 Status: Ordered lisinopril 2.5 mg oral tablet 2.5 mg, 1, tablet, By Mouth, Daily, for 90 days, # 90 tablet, Refills 3, Tot. Refills 3, Physician Stop 03/04/22 13:58:00 EST, 03/09/21 13:58:00 EST, Route to Pharmacy Electronically, [facility], 172, cm, 03/09/21 13:48:00 EST, [...]
--- OUTSIDE RECORDS SUMMARY | 2023-02-21 21:19 | XMS_ITS | Continuity of Care Document ---
Author Name Unknown Organization [facility] Address [address] [place] [address]- Care Team Providers Care Mail List Librarian Name Role Phone Ze DIEZ, Baldomero Primary Care Physician [facility]): 03/10/22 - 04/09/22 [facility] [address] [place], [place] [address] Allergies, Adverse Reactions, Alerts No Known Allergies Immunizations Given and Recorded Vaccine Date Status Refusal Reason [id number] 12y+ bivalent booster vax 11/11/21 Recorded influenza [...] vaccine, inactivated 12/25/09 Give n SARS-CoV-2 mRNA ([id number]-ndob-jxauf) vax 06/02/21 Recorded tetanus/diphtheria/pertussis, acel(Tdap) 8 03/09/21 [...] 7Admin Note: vis sheet given. 8Result Comment: [id number] given w/out incident 9Admin Note: done @ [facility] form received 10Result Comment: [02/10/2015] given w/out incident 11Result Comment: [02/10/2015] given w/out incident 12Admin Note: done @ [facility] 13Admin Note: sanofi 14Admin Note: [email or web address] PATIENT MEETS CRITERIA 15Admin Note: SANOFI PA[employer] Medications atenolol 50 mg oral tablet 50 mg, 1, tablet, By Mouth, Daily, for 90 days, # 90 tablet, Refills 3, Tot. Refills 3, Physician Stop 03/05/23 9:25:00 EST, 03/10/22 9:25:00 EST, Route to Pharmacy Electronically, [facility], 172, cm, 03/10/22 8:55:00 EST, Height Start Date: 03/10/22 Stop Date: 03/05/23 Status: Ordered lisinopril 2.5 mg oral tablet 2.5 mg, 1, tablet, By Mouth, Daily, for 90 days, # 90 tablet, Refills 3, Tot. Refills 3, Physician Stop 03/05/23 9:25:00 EST, 03/10/22 9:25:00 EST, Route to Pharmacy Electronically, [facility], 172, cm, 03/10/22 8:55:00 EST, [...] Details, Route to Pharmacy Electronically, [facility], 172, cm, 03/10/22... Start Date: [...] Care Physician Member Role: PCP Address: Address: [address] [place] [address] Adult & [place] [address]- Care Team Related Persons Name: CARLY FLORESA Address: [address] [place] [address]
--- OUTSIDE RECORDS SUMMARY | 2023-02-21 21:19 | XMS_ITS | Continuity of Care Document ---
Author Name Unknown Organization [facility] Address [address] [place] [address]- Care Team Providers Care Shift Stacker Name Role Phone Ze DIEZ, Baldomero Primary Care Physician [facility]s): 03/15/22 - 04/14/22 [facility] [address] [place], [place] [address] Allergies, Adverse Reactions, Alerts No Known Allergies Immunizations Given and Recorded Vaccine Date Status Refusal Reason [id number] 12y+ bivalent booster vax 11/11/21 Recorded influenza [...] vaccine, inactivated 12/25/09 Give n SARS-CoV-2 mRNA (zurlkjx-pshb-gnmud) vax 06/02/21 Recorded tetanus/diphtheria/pertussis, acel(Tdap) 8 03/09/21 [...] 7Admin Note: vis sheet given. 8Result Comment: [id number] given w/out incident 9Admin Note: done @ [facility] form received 10Result Comment: [02/10/2015] given w/out incident 11Result Comment: [02/10/2015] given w/out incident 12Admin Note: done @ [facility] 13Admin Note: sanofi 14Admin Note: [employer] PATIENT MEETS CRITERIA 15Admin Note: SANOFI PA[employer]UR Medications atenolol 50 mg oral tablet 50 mg, 1, tablet, By Mouth, Daily, for 90 days, # 90 tablet, Refills 3, Tot. Refills 3, Physician Stop 03/05/23 9:25:00 EST, 03/10/22 9:25:00 EST, Route to Pharmacy Electronically, [facility], 172, cm, 03/10/22 8:55:00 EST, Height Start Date: 03/10/22 Stop Date: 03/05/23 Status: Ordered lisinopril 2.5 mg oral tablet 2.5 mg, 1, tablet, By Mouth, Daily, for 90 days, # 90 tablet, Refills 3, Tot. Refills 3, Physician Stop 03/05/23 9:25:00 EST, 03/10/22 9:25:00 EST, Route to Pharmacy Electronically, [facility], 172, cm, 03/10/22 8:55:00 EST, [...] Details, Route to Pharmacy Electronically, [facility], 172, cm, 03/10/22... Start Date: [...] Care Physician Member Role: PCP Address: Address: [address] [place] [address] Adult & [place] [address]- Care Team Related Persons Name: CARLY FLORESA Address: [address] [place] [address]
--- OUTSIDE RECORDS SUMMARY | 2023-02-21 21:19 | XMS_ITS | Continuity of Care Document ---
Author Name Unknown Organization [facility] Address [address] [place] [address]- Care Team Providers Care Basketball Coach Name Role Phone Ze DIEZ, Baldomero Primary Care Physician [facility]): 01/20/21 - 02/19/21 [facility] [address] [place], [place] [address] Allergies, Adverse Reactions, Alerts No Known [...] 03/06/20 9:01:00 EST, Route to Pharmacy Electronically, [facility], 172, cm, 03/02/19 13:23:00EST, Height Start Date: 03/06/20 Stop Date: 03/01/21 Status: Ordered lisinopril 2.5 mg oral tablet See Instructions, TAKE ONE TABLET BY MOUTH EVERY DAY, # 90 tablet, Refills 0, Instructions Replace Required Details, Route to Pharmacy Electronically, [facility], 172, cm, 03/02/19 13:23:00 EST, Height Start Date: 01/06/21 Status: Ordered Probiotic Formula By Mouth, Daily, 0 Refills, Maintenance, 03/02/19 13:21:00 EST Start Date: 03/02/19 Status: Ordered simvastatin 20 mg oral tablet See Instructions, TAKE ONE TABLET BY MOUTH EVERY OTHER DAY, # 45 tablet, Refills 1, Instructions Replace Required Details, Route to Pharmacy Electronically, [facility], 172, cm, 03/02/19 13:23:00 [...]
--- OUTSIDE RECORDS SUMMARY | 2023-02-21 21:19 | XMS_ITS | Continuity of Care Document ---
Author Name Unknown Organization [facility] Address [address] [place] [address]- Care Team Providers Care Microbiology Coordinator Name Role Phone Baldomero Kunz MD Primary Care Physician [place] [facility] [place]10[place]22 - 03/17/22 [facility] [address] [place], [place] [address] Attending Physician: Baldomero Kunz MD Allergies, Adverse Reactions, Alerts No Known Allergies Immunizations Given and Recorded Vaccine Date Status Refusal Reason [id number] 12y+ bivalent booster vax 11/11/21 Recorded influenza [...] vaccine, inactivated 12/25/09 Give n SARS-CoV-2 mRNA (idqkhrg-lrkx-wycoz) vax 06/02/21 Recorded tetanus/diphtheria/pertussis, acel(Tdap) 8 03/09/21 [...] 7Admin Note: vis sheet given. 8Result Comment: [id number] given w/out incident 9Admin Note: done @ [...] 03/10/22 9:25:00 EST, Route to Pharmacy Electronically, [facility], 172, cm, 03/10/22 8:55:00 EST, Height Start Date: 03/10/22 Stop Date: 03/05/23 Status: Ordered lisinopril 2.5 mg oral tablet 2.5 mg, 1, tablet, By Mouth, Daily, for 90 days, # 90 tablet, Refills 3, Tot. Refills 3, Physician Stop 03/05/23 9:25:00 EST, 03/10/22 9:25:00 EST, Route to Pharmacy Electronically, [facility], 172, cm, 03/10/22 8:55:00 EST, [...] Details, Route to Pharmacy Electronically, [facility], 172, cm, 03/10/22... Start Date: [...] oldest [Reference Range]: 1 Height 172 cm (03/10/22 8:55 AM) Weight 74.4 kg (03/10/22 8:55 AM) Oxygen Saturation [94-100 %] 97 % (03/10/22 8:55 AM) Pulse Rate [55-90 bpm] 61 bpm (03/10/22 8:55 AM) Body Mass Index [18.5-24.99 kg/m2] 25.15 kg/m2 *H* (03/10/22 8:55 AM) Blood Pressure [90-138/55-84 mm Hg] 110/ 64mm Hg (03/10/22 8:55 AM) Mode of Delivery (Oxygen) Room air (03/10/22 8:55 AM) Blood pressure sites Arm, left (03/10/22 8:55 AM) Weight Obtained Via Standing scale (03/10/22 8:55 AM) Social History Social History Type Response Smoking Status Never (less than 100 in lifetime) entered on: 03/02/19 Sex Note * Concepción Garrett: PERFORM, SIGN, VERIFY Event Display: Patient Education/Instruction Authored Date: [id number] [facility] *[facility] Clinical Summary Name ANGIE FLORES Age 81 Years 1940 PCP Ze DIEZ, Baldomero PCP Visit Date 03/10/2022 08:50:00 Patient Instructions 1. fasting lab work today 2. in addition will check for vitamin B12, Lyme exposure and blood test for myasthenia gravis to find causes of your intermittent double vision. 3. I will also request a MRI Brain study as well for this. 4. keep well hydrated, no changes to meds, renewed them today. 5. keep active lifestyle, exercise is recommended on a regular basis. 6. keep well hydrated. Additional Instructions: Scheduled Appointments?? Future Appointments ?No Future Appointments Scheduled Follow-Up Instructions ?? With: Address: When: [facility] [address] [facility] [phone] Comments: dx: diplopia their office will call pt w/appt Diagnosis Gastro-esophageal reflux disease without esophagitis; Pure hypercholesterolemia, unspecified; Essential (primary) hypertension; Unspecified cirrhosis of liver; Gastroparesis; Encounter for general adult medical examination without abnormal findings Medications: Please continue your medications until treatment is completed or stopped by your provider. Discuss any questions related to medications with your provider. New Medications [facility] [address] [place], [place] [id number], [phone] Atenolol (atenolol 50 mg oral tablet) 1 tab(s) Oral Daily for 90 Days. Refills: 3. Next Dose: Lisinopril (lisinopril 2.5 mg oral tablet) 1 tab(s) Oral Daily for 90 Days. Refills: 3. Next Dose: Medications to Continue with No Changes [facility] # [place], [place] [id number], [phone] Simvastatin (simvastatin 20 mg oral tablet) TAKE ONE TABLET BY MOUTH EVERY OTHER DAY. Refills: 3. Next Dose: These medications were not printed or sent to your pharmacy bifidobacterium-lactobacillus (Probiotic Formula) Oral Daily. Next Dose: Ergocalciferol (Vitamin D Capsule) Oral. Next Dose: Allergy Info:?? NKA Medications Given This Visit Future Orders ?ALT? Order Date:03/10/22?- Complete on or after?03/10/22 ?MRI Brain W+W/O Contrast? Order Date:03/10/22?- Complete on or after?03/10/22 Vital Signs Height 172 cm Weight 74.4 kg BMI 25.15 kg/m2 Blood Pressure 110 mm Hg/64 mm Hg Temperature Pulse Rate 61 bpm Respiratory Rate 02 Sat Mode of Delivery 97 %/Room air You can now view a summary of your hospital visit from the comfort of your home through a free online portal called [employer]. [employer] is a website that allows you to securely view your medical information including discharge summary, medications and follow-up visits. ??You can alsosend a secure electronic message to your doctor???s office to request appointments, renew medications or just ask a question. You can enroll at [email or web address] or register during your next office [...] primary care provider, you may find a [facility] provider by calling [facility] [employer] [facility] at [phone]. For information about the plan of care including goals and instructions for your diagnosis, please see the patient education orders section of this document. Patient Education Materials?? The content of this educational material or handout may have been modified, supplemented, or adapted from its original content and format to support your individualized medical care. Additional Provider Instructions: 1. fasting lab work today 2. in addition will check for vitamin B12, Lyme exposure and blood test for myasthenia gravis to find causes of your intermittent double vision. 3. I will also request a MRI Brain study as well for this. 4. keep well hydrated, no changes to meds, renewed them today. 5. keep active lifestyle, exercise is recommended on a regular basis. 6. keep well hydrated. Patient Care team information Care Team Personnel Name: Baldomero Kunz MD Position: [facility] Primary Care Physician Member Role: PCP Address: Address: [address] [place] [address] Adult & [place] [address]- Care Team Related Persons Name: LISA FLORES Address: [address] [place] [address]
--- OUTSIDE RECORDS SUMMARY | 2023-02-21 21:19 | XMS_ITS | Continuity of Care Document ---
Author Name Unknown Organization [facility] Address [address] [place] [address]- Care Team Providers Care Hardware Installer Name Role Phone Baldomero Kunz MD Primary Care Physician [facility]): 03/09/21 - 04/08/21 [facility] [address] [place], [place] [address] Allergies, Adverse Reactions, Alerts No Known [...] tetanus-diphtheria toxoids (Td) 01/11/02 Given 1Result Comment: [id number] given w/out incident 2Result Comment: done @ [...] 03/09/21 13:58:00 EST, Route to Pharmacy Electronically, [facility], 172, cm, 03/09/21 13:48:00 EST, Height Start Date: 03/09/21 Stop Date: 03/04/22 Status: Ordered lisinopril 2.5 mg oral tablet 2.5 mg, 1, tablet, By Mouth, Daily, for 90 days, # 90 tablet, Refills 3, Tot. Refills 3, Physician Stop 03/04/22 13:58:00 EST, 03/09/21 13:58:00 EST, Route to Pharmacy Electronically, [facility], 172, cm, 03/09/21 13:48:00 EST, [...]
== END 2023-02-21 21:18 | disposition home or self-care (01) ==
LOC: HO.ED 21:16
PROVIDERS: Emergency Provider Student in an Organized Health Care Education/Training Program; PCP Internal Medicine
DX: K22.2 Esophageal obstruction (principal); R07.89 Other chest pain; I10 Essential (primary) hypertension; E78.5 Hyperlipidemia, unspecified; Z79.899 Other long term (current) drug therapy
CPT/HCPCS: 71046; 93005; 99283

== ENCOUNTER → 2023-02-21 15:15 | Outpatient (BNV) | payer OTHER, MEDICARE, SELFPAY | PROVIDERS: Emergency Provider Student in an Organized Health Care Education/Training Program; PCP Internal Medicine; Visit Provider Internal Medicine | DX: R07.9 Chest pain, unspecified (principal) | CPT/HCPCS: 93010 ==